=== PATIENT | female | born 1995 | race American Indian/Alaskan Native ===

== ENCOUNTER 2016-05-16 10:45 | Outpatient (CLI) | payer MEDICAID ==
[2016-05-16 11:00] VITALS: BP 130/78
[2016-05-16] MEDS ORDERED: LACTATED RINGERS 500 ML IV ONE (11:15)
[2016-05-16 12:13] LABS: Bilirubin,Urine NEG (Negative); Blood,Urine NEG (Negative); Ketones,Urine NEG (Negative); Leukocyte Esterase,Urine TR (Negative); Mucus,Urine FEW /HPF; Nitrite,Urine NEG (Negative); Protein,Urine <15 mg/dL mg/dL (Negative); Urobilinogen,Urine < 2.0 mg/dL (<2.0)
== END 2016-05-16 12:35 | disposition home or self-care (01) ==
LOC: TRG 10:45
PROVIDERS: ATTEND Obstetrics & Gynecology Gynecology
DX: O47.03 False labor before 37 completed weeks of gestation, third trimester (principal); Z3A.31 31 weeks gestation of pregnancy
CPT/HCPCS: 81001; J7120

== ENCOUNTER 2017-02-20 11:02 | Emergency (ER) | payer MEDICAID ==
[2017-02-20 11:08] VITALS: BP 149/85
[2017-02-20 12:28] LABS: Bacteria,Urine 1+ /HPF (Negative); Bilirubin,Urine NEG (Negative); Blood,Urine NEG (Negative); Ketones,Urine NEG (Negative); Leukocyte Esterase,Urine NEG (Negative); Mucus,Urine FEW /HPF; Nitrite,Urine NEG (Negative); Protein,Urine <15 mg/dL mg/dL (Negative); RBC,Urine < 1.0 /HPF (0.0-6.0)
[2017-02-20] MEDS ORDERED: NORCO PO ONE (12:41)
[2017-02-20] MEDS ORDERED: KEFLEX PO ONE (12:41)
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
[2017-02-20] MEDS ORDERED: NORCO 7.5/325 PO ONE (12:53)
== END 2017-02-20 13:06 | disposition home or self-care (01) ==
LOC: ED 11:02
DX: N76.4 Abscess of vulva (principal)
CPT/HCPCS: 81001; 81025; 99283

== ENCOUNTER 2017-03-29 10:29 | Emergency (ER) | payer MEDICAID ==
[2017-03-29 11:24] VITALS: BP 149/54
== END 2017-03-29 12:53 | disposition left against medical advice (07) ==
LOC: ED 10:29
DX: Z53.21 Procedure and treatment not carried out due to patient leaving prior to being seen by health care provider (principal)

== ENCOUNTER 2018-07-28 18:31 | Emergency (ER) | payer MEDICAID ==
[2018-07-28] MEDS ORDERED: TYLENOL ONE (19:56)
[2018-07-28] MEDS ORDERED: TYLENOL PO ONE (19:56)
--- NOTE | 2018-07-28 19:57 | Emergency Department Report ---
Blank Doc - Documentation Documentation: 23 y o female presents to ed With bartholin cyst swelling left sided x 3 days tylenol given in Triage [facility] eval
[2018-07-29] MEDS ORDERED: XYLOCAINE 2% INFILTRATI ONE ×2 (00:39→00:57)
[2018-07-29] MEDS ORDERED: XYLOCAINE 1% MPF 5 mL INFILTRATI ONE (00:41)
[2018-07-29] MEDS ORDERED: NORCO 5/325 PO ONE (00:41)
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
== END 2018-07-29 02:00 | disposition home or self-care (01) ==
LOC: ED 18:31
DX: N75.0 Cyst of Bartholin's gland (principal); F17.200 Nicotine dependence, unspecified, uncomplicated

== ENCOUNTER 2019-03-20 13:50 | Emergency (ER) | payer MEDICAID ==
--- NOTE | 2019-03-20 16:15 | Emergency Department Report ---
Blank Doc - Documentation Documentation: 24-year-old female that presents with heart palpations. Denies any SOB. This initial assessment/diagnostic orders/clinical plan/treatment(s) is/are subject to change based on patient's health status, clinical progression and re- assessment by fellow clinical providers in the ED. Further treatment and workup at subsequent clinical providers discretion. Patient/guardians urged not to elope from the ED as their condition may be serious if not clinically assessed and managed. Initial orders include: 1- Patient sent to ACC for further evaluation and treatment 2- EKG 3- CXR 4- UA
[2019-03-20 16:40] LABS: Basophils % (Auto) 0.5 % (0.0-1.8); Eosinophils % (Auto) 0.1 % (0.0-4.3); Hematocrit 38.2 % (30.3-42.9); Hemoglobin 12.1 gm/dl (10.1-14.3); Lymphocytes # (Auto) 1.3 K/mm3 (1.2-5.4); Lymphocytes % (Auto) 31.8 % (13.4-35.0); Mean Corpuscular HGB Conc 32 % (30-34); Mean Corpuscular Volume 78 fl (79-97); Monocytes # (Auto) 0.5 K/mm3 (0.0-0.8); Monocytes % (Auto) 11.9 % (0.0-7.3); Platelet Count 302 K/mm3 (140-440); Red Blood Count 4.88 M/mm3 (3.65-5.03); Red Cell Distribution Width 15.5 % (13.2-15.2)
[2019-03-20 16:58] LABS: BUN/Creatinine Ratio 14; Blood Urea Nitrogen 7 mg/dL (7-17); Calcium 8.9 mg/dL (8.4-10.2); Hemolysis Index 2
[2019-03-20 17:28] LABS: Bilirubin,Urine NEG (Negative); Blood,Urine LG (Negative); Color,Urine Yellow (Yellow); Mucus,Urine FEW /HPF; Protein,Urine <15 mg/dL mg/dL (Negative); Urobilinogen,Urine < 2.0 mg/dL (<2.0)
--- NOTE | 2019-03-20 18:03 | XRay Report ---
CHEST 2 VIEWS INDICATION / CLINICAL INFORMATION: chest palpations. COMPARISON: None available. FINDINGS: SUPPORT DEVICES: None. HEART / MEDIASTINUM: No significant abnormality. LUNGS / PLEURA: No significant pulmonary or pleural abnormality. No pneumothorax. ADDITIONAL FINDINGS: No significant additional findings. IMPRESSION: 1. No acute findings. Signer Name: Genaro Polanco MD Signed: 03/20/2019 5:58 PM Workstation Name: [id number]
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
[2019-03-20 22:15] VITALS: BP 108/68
== END 2019-03-20 22:20 | disposition home or self-care (01) ==
LOC: ED 13:50
DX: R00.2 Palpitations (principal); Z79.899 Other long term (current) drug therapy; Z91.040 Latex allergy status; Z91.018 Allergy to other foods
CPT/HCPCS: 36415; 71046; 80048; 81001; 84443; 84703; 85025; 93005; 93010

== ENCOUNTER 2019-12-28 11:24 | Emergency (ER) | payer MEDICAID ==
[2019-12-28 12:20] VITALS: BP 126/76
== END 2019-12-28 13:02 | disposition left against medical advice (07) ==
LOC: ED 11:24
DX: M79.674 Pain in right toe(s) (principal); Z53.21 Procedure and treatment not carried out due to patient leaving prior to being seen by health care provider

== ENCOUNTER 2020-08-03 22:37 | Emergency (ER) | payer MEDICAID ==
[2020-08-04 00:56] LABS: Basophils % (Auto) 0.2 % (0.0-1.8); Hematocrit 37.6 % (30.3-42.9); Hemoglobin 12.2 gm/dl (10.1-14.3); Lymphocytes # (Auto) 1.4 K/mm3 (1.2-5.4); Lymphocytes % (Auto) 7.6 % (13.4-35.0); Mean Corpuscular HGB Conc 32 % (30-34); Mean Corpuscular Volume 75 fl (79-97); Monocytes # (Auto) 0.7 K/mm3 (0.0-0.8); Monocytes % (Auto) 3.7 % (0.0-7.3); Platelet Count 346 K/mm3 (140-440); Red Blood Count 5.02 M/mm3 (3.65-5.03); Red Cell Distribution Width 16.8 % (13.2-15.2)
[2020-08-04 01:08] LABS: Blood Urea Nitrogen 6 mg/dL (7-17); Calcium 9.4 mg/dL (8.4-10.2); Hemolysis Index 0
[2020-08-04 01:13] LABS: BUN/Creatinine Ratio 15
[2020-08-04 01:33] LABS: Bacteria,Urine 1+ /HPF (Negative); Bilirubin,Urine NEG (Negative); Blood,Urine NEG (Negative); Color,Urine Yellow (Yellow); Hyaline Casts,Urine 3 /LPF; Mucus,Urine 3+ /HPF; Urobilinogen,Urine < 2.0 mg/dL (<2.0)
--- NOTE | 2020-08-04 02:53 | Ultrasound Report ---
ULTRASOUND OBSTETRIC INDICATION / CLINICAL INFORMATION: abdominal pain. Clinical Gestational Age (GA): TECHNIQUE: Transabdominal. COMPARISON: None available. FINDINGS: There is a single intrauterine . Biparietal Diameter = 3.5 cm = 16 weeks, 6 day(s). Head Circumference = 12.4 cm = 16 weeks, 2 day(s). Abdominal Circumference = 11.1 cm = 16 weeks, 6 day(s). Femur Length = 2.5 cm = 17 weeks, 3 day(s). Average Ultrasound Age (AUA) = 16 weeks, 6 day(s). Heart Rate: 147 beats per minute. Estimated Weight in grams (if calculated): Estimated Weight Growth Percentile (if calculated): Position: breech. Cervix: closed. Length in cm (if measured): 3.5 Placenta: Fundal and free of the os. Amniotic Fluid Volume: normal Amniotic Fluid Index (JOSE FRANCISCO) in cm (if calculated): . Maternal Adnexa: No significant abnormality. IMPRESSION: 1. Single, living intrauterine with estimated sonographic age of 16 weeks, 6 day(s). 2. No significant sonographic abnormality. Signer Name: Richy Perkins MD Signed: 08/04/2020 2:48 AM Workstation Name: [id number]
[2020-08-04] MEDS ORDERED: MORPHINE 4 MG/1 ML INJ IV ONE (06:29)
[2020-08-04] MEDS ORDERED: SODIUM CHLORIDE 0.9% 1000 ML 1,000 ML IV ONE (06:29)
[2020-08-04] MEDS ORDERED: ONDANSETRON 4 MG/2 ML INJ IV ONE (06:29)
[2020-08-04] MEDS ORDERED: cefTRIAXone/NS 1 GM/50 ML 1 GM/50 ML BAG IV ONE (06:30)
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
[2020-08-04 09:57] VITALS: BP 105/80
== END 2020-08-04 09:57 | disposition home or self-care (01) ==
LOC: ED 22:37
DX: O23.42 Unspecified infection of urinary tract in pregnancy, second trimester (principal); O21.9 Vomiting of pregnancy, unspecified; O26.892 Other specified pregnancy related conditions, second trimester; R10.84 Generalized abdominal pain; Z98.890 Other specified postprocedural states; Z91.040 Latex allergy status; Z91.018 Allergy to other foods; Z79.899 Other long term (current) drug therapy; Z3A.16 16 weeks gestation of pregnancy
CPT/HCPCS: 36415; 76805; 80048; 81001; 84702; 85025; 87086; 96365; 96375; 99284; J0696; J2270; J2405; J7030

== ENCOUNTER 2021-10-09 20:31 | Emergency (ER) | payer MEDICAID ==
[2021-10-09 20:42] VITALS: BP 147/96
== END 2021-10-10 08:33 | disposition left against medical advice (07) ==
LOC: ED 20:31
DX: N64.4 Mastodynia (principal); Z53.21 Procedure and treatment not carried out due to patient leaving prior to being seen by health care provider